=== PATIENT | female | born 1960 | race Hispanic/Latino ===

== ENCOUNTER 2024-06-01 09:46 | Emergency (ER) | payer MEDICARE ==
[~2024-06-01] VITALS: Ht 170.2 cm; Wt 99.8 kg
[2024-06-01 09:48] VITALS: BP 145/60; PULSE 60; RESP 16
[2024-06-01] MEDS ORDERED: IBUP-2077 PO (10:15)
[2024-06-01] MEDS ORDERED: CEPH500B PO (10:15)
[2024-06-01] MEDS: NEOMY SULF/BACITRA/POLYMYXIN B 1 EACH PACKET TP ONE (10:38)
[2024-06-01] MEDS: ACETAMINOPHEN 500 MG TABLET PO ONE (10:39)
[2024-06-01] MEDS: CEPHALEXIN 500 MG CAPSULE PO ONE (10:39)
[2024-06-01] MEDS: TETANUS/DIPHTHERIA TOXOID [ADULT] 0.5 ML VIAL IM ONE (10:41)
== END 2024-06-01 11:12 | disposition home or self-care (01) ==
LOC: EDH 09:46
DX: S61.212A Laceration without foreign body of right middle finger without damage to nail, initial encounter (principal); J45.909 Unspecified asthma, uncomplicated; E11.9 Type 2 diabetes mellitus without complications; E78.00 Pure hypercholesterolemia, unspecified; M19.90 Unspecified osteoarthritis, unspecified site; Z88.8 Allergy status to other drugs, medicaments and biological substances; Z90.49 Acquired absence of other specified parts of digestive tract; Z98.890 Other specified postprocedural states; W22.8XXA Striking against or struck by other objects, initial encounter; Y93.89 Activity, other specified; Y92.89 Other specified places as the place of occurrence of the external cause; Y99.8 Other external cause status
CPT/HCPCS: 90471; 90714

== ENCOUNTER 2024-06-11 14:39 | Emergency (ER) | payer MEDICARE ==
[~2024-06-11] VITALS: Ht 170.2 cm; Wt 98.9 kg
[~2024-06-11 14:39] MED LIST: CEPH500B PO; IBUP-2077 PO
[2024-06-11] MEDS: DiphenhydrAMINE HCL 25 MG CAPSULE PO ONE (18:37)
[2024-06-11] MEDS: FAMOTIDINE 20MG TAB PO ONE (18:37)
[2024-06-11] MEDS: SOLU-MEDROL 125MG VIAL IM ONE (18:37)
[2024-06-11 19:25] VITALS: BP 131/66; PULSE 68; RESP 16; O2SAT 98
== END 2024-06-11 19:30 | disposition home or self-care (01) ==
LOC: EDH 14:39
DX: R21 Rash and other nonspecific skin eruption (principal); J45.909 Unspecified asthma, uncomplicated; E11.9 Type 2 diabetes mellitus without complications; E78.00 Pure hypercholesterolemia, unspecified; Z79.899 Other long term (current) drug therapy; Z88.6 Allergy status to analgesic agent; Z90.49 Acquired absence of other specified parts of digestive tract; Z98.890 Other specified postprocedural states
CPT/HCPCS: 99283; 96372; Q0163; J2919

== ENCOUNTER → 2024-12-18 | Outpatient (CLI) | payer OTHER, MEDICAID ==
--- NOTE | 2024-12-20 11:13 | HMCIMG ---
SCREENING MAMMOGRAM REASON: Annual Exam COMPARISON: 03/17/2023 TECHNIQUE: CC and MLO views of the bilateral breasts were performed.CAD was performed as well. FINDINGS: Parenchymal density: There are scattered areas of fibroglandular density. There are no focal mass lesions. There are no pathologic appearing calcifications. There is no evidence of architectural distortion or skin thickening. IMPRESSION: Normal screening mammogram The patient was entered into a reminder system with a target due date for their next mammogram. BI-RADS CATEGORY 1: NEGATIVE Recommend monthly self breast exam as well as annual clinical examination. A negative x-ray should not delay biopsy if a dominant or clinically suspicious mass is present, since 8-10% of cancers are not identified by mammography. Dense breasts particularly, may obscure an underlying neoplasm. Some of these may be detected clinically and therefore, clinical examination is an essential part of breast evaluation.
== END | disposition home or self-care (01) ==
LOC: RAH 09:57
PROVIDERS: ATTEND Family Medicine
DX: Z12.31 Encounter for screening mammogram for malignant neoplasm of breast (principal); R92.323 Mammographic fibroglandular density, bilateral breasts
CPT/HCPCS: 77067